=== PATIENT | female | born 1990 | race Caucasian/White ===

== ENCOUNTER 2017-10-31 22:52 | Emergency (ER) | payer OTHER ==
[~2017-10-31] VITALS: Ht 165.1 cm; Wt 79.4 kg
[2017-10-31 23:01] VITALS: Ht 165.1 cm; Wt 79.4 kg
[2017-11-01 01:12] LABS: BASOPHIL % 0.2 % (0-2); PLATELET COUNT 298 x10^3mcL (130-400)
[2017-11-01 01:13] LABS: UA SPECIFIC GRAVITY 1.015 (1.005-1.035); microscopic required? YES; urine erythrocyte 1+ (NEGATIVE)
[2017-11-01 01:20] LABS: RED CELL DISTRIBUTION WIDTH 16.3 % (11.5-14.5)
[2017-11-01 01:22] LABS: CALCIUM 9.1 mg/dL (8.5-10.1); CHLORIDE SERUM 104 mmol/L (98-107); CREATININE SERUM 0.7 mg/dL (0.6-1.0); GFR1 > 60 mL/min; GLUCOSE SERUM 129 mg/dL (74-106); POTASSIUM SERUM 3.6 mmol/L (3.5-5.1); SODIUM SERUM 139 mmol/L (136-145)
[2017-11-01 01:32] LABS: ALBUMIN 3.6 g/dL (3.4-5.0); ALKALINE PHOSPHATASE 76 U/L (46-116); ALT/SGPT 40 U/L (14-59); AMYLASE 53 U/L (25-115); AST/SGOT 51 U/L (15-37); BILIRUBIN TOTAL 0.27 mg/dL (0.20-1.00); CHOLESTEROL 166 mg/dL (<200); LIPASE 158 IU/L (73-393); TOTAL PROTEIN, SERUM 7.8 g/dL (6.4-8.2)
[2017-11-01 01:35] LABS: HDL CHOLESTEROL 21 mg/dL (40-60)
[2017-11-01 02:43] VITALS: BP 124/64
== END 2017-11-01 02:43 | disposition home or self-care (01) ==
LOC: ED 22:52
PROVIDERS: Emergency Medicine
DX: K80.20 Calculus of gallbladder without cholecystitis without obstruction (principal); E66.9 Obesity, unspecified
CPT/HCPCS: 83880; J1885; J7030; Q0092